=== PATIENT | female | born 1970 | race Caucasian/White ===

== ENCOUNTER 2021-06-22 20:57 | Emergency (ER) | payer OTHER ==
[~2021-06-22] VITALS: Ht 157.5 cm; Wt 45.4 kg
[~2021-06-22 20:57] MED LIST: ALPRAZOLAM; AMBEREN; CLARITIN10 M2 PO; ESTRACE0.5 MG PO; MACROBID 100 M100 M1 PO; MAGOX 400400 MG PO; MOBIC7.5 MG PO; MS CONTIN 30 MG30 M1 PO; MS CONTIN 60 MG60 M1 GT; NEURONTIN600 MG PO; PENICILLIN VK500 M1 PO; VITAMIN B-1100 MG; XANAX 1 MG TABLE1 MG PO; ZANAFLEX2 MG PO
[2021-06-22] MEDS ORDERED: DESYREL300 MG PO (21:13)
[2021-06-22 21:31] LABS: URINE BILIRUBIN NEGATIVE (Negative); URINE BLOOD 1+ (Negative); URINE CLARITY CLEAR; URINE COLOR YELLOW; URINE GLUCOSE-RANDOM NEGATIVE (Negative); URINE KETONES NEGATIVE (Negative); URINE LEUKOCYTES-REFLEX NEGATIVE (Negative); URINE NITRITE-REFLEX NEGATIVE (Negative); URINE PROTEIN NEGATIVE (Negative); URINE SPECIFIC GRAVITY 1.025 (1.005-1.030); URINE UROBILINOGEN 0.2 E.U./dl (0.2-1.0)
[2021-06-22 21:48] LABS: AMP/METHAMP POSITIVE (Negative); BARBITURATES Negative (Negative); BENZODIAZEPINES Negative (Negative); COCAINE Negative (Negative); METHADONE Negative (Negative); OPIATES POSITIVE (Negative); PCP Negative (Negative); THC Negative (Negative)
[2021-06-22 22:26] LABS: ABSOLUTE LYMPHOCYTES 1.1 thou/uL (0.8-5.3); ABSOLUTE MONOCYTES 0.3 thou/uL (0.0-1.2); ABSOLUTE NEUTROPHILS 4.4 thou/uL (1.6-8.1); BASOPHILS 0.6 %; EOSINOPHILS 0.8 %; HEMATOCRIT 37.8 % (37.0-47.0); HEMOGLOBIN 12.2 gm/dL (12.0-15.0); LYMPHOCYTES 18.6 %; MCH 29.1 pg (26.0-34.0); MCHC 32.4 g/dL (28.0-37.0); MCV 89.8 fL (80.0-100.0); MONOCYTES 5.8 %; MPV 8.8 fl. (7.2-11.1); NUCLEATED RBCS 0 /100WBC; PLATELET COUNT* 189 thou/uL (150-400); POLYS 74.2 %; RBC 4.21 mil/uL (4.20-5.00)
[2021-06-22 22:30] LABS: CALCIUM 8.7 mg/dL (8.5-10.1); CREATININE 0.6 mg/dL (0.6-1.3); POTASSIUM 4.1 mmol/L (3.5-5.1)
[2021-06-22] MEDS ORDERED: ADDERALL 30 MG30 MG PO (22:31)
[2021-06-22 22:50] LABS: CASTS None Seen /LPF (None Seen); SQUAMOUS 0-3 Few /LPF (0-3)
[2021-06-22 22:51] LABS: BACTERIA-REFLEX None Seen /HPF (None Seen); CRYSTALS None Seen /LPF (None Seen); URINE RBC 3-10 Few /HPF (0-2); URINE WBC-REFLEX None Seen /HPF (0-5)
[2021-06-23] MEDS ORDERED: CEPHALEXIN 250250 M1 PO (01:53)
[2021-06-23] MEDS ORDERED: PROZAC40 MG PO (02:07)
[2021-06-23] MEDS ORDERED: ONDANSETRON ODT4 MG PO (02:07)
[2021-06-23] MEDS ORDERED: PLAQUENIL200 MG PO (02:08)
[2021-06-23] MEDS ORDERED: NIFEDIPINE ER60 M1 PO (02:08)
[2021-06-23] MEDS ORDERED: AMBIEN5 MG PO (02:09)
[2021-06-23] MEDS ORDERED: DORYX MPC120 MG PO (02:09)
[2021-06-23] MEDS ORDERED: IMITREX100 MG PO (02:09)
[2021-06-23 02:15] VITALS: BP 145/87
== END 2021-06-23 02:18 | disposition home or self-care (01) ==
LOC: M.ERS 20:57
PROVIDERS: Emergency Medicine
DX: G89.29 Other chronic pain (principal); M54.59 Other low back pain; Z79.899 Other long term (current) drug therapy